=== PATIENT | male | born 1990 | race Caucasian/White ===

== ENCOUNTER 2016-12-30 09:22 | Emergency (ER) | payer OTHER ==
[2016-12-30 10:57] LABS: CREATININE 0.94 mg/dl (0.60-1.30); eGFR VALUE FOR BLACK >90 mL/Min
== END 2016-12-30 11:52 ==
LOC: EDMED 09:22
PROVIDERS: Emergency Medicine
DX: R07.89 Other chest pain (principal); F17.200 Nicotine dependence, unspecified, uncomplicated
CPT/HCPCS: J1885